=== PATIENT | female | born 1990 | race Two or more races ===

== ENCOUNTER 2024-07-09 04:22 | Emergency (ER) | payer OTHER ==
[2024-07-09] MEDS: Morphine 4 MG/ML Syringe IM ONE (04:52)
[2024-07-09] MEDS: Morphine 4 MG/ML Syringe IVPUSH ONE (05:03)
[2024-07-09] MEDS: Sodium Chloride 0.9% 1,000 ML IV ONE (05:03)
[2024-07-09] MEDS: Ondansetron 4 MG/2 ML SDV IVPUSH ONE (05:03)
[2024-07-09 05:17] LABS: BASOPHILS ABSOLUTE AUTO 0.02 K/uL (0.00-0.20); BASOPHILS PERCENT AUTO 0.2 % (0.0-1.0); EOSINOPHILS ABSOLUTE AUTO 0.03 K/uL (0.00-0.45); EOSINOPHILS PERCENT AUTO 0.2 % (0.0-6.0); HEMATOCRIT 37.5 % (37.0-47.0); HEMOGLOBIN 12.6 g/dL (12.0-16.0); IMMATURE GRAN ABSOLUTE AUTO 0.03 K/uL (0.00-0.05); IMMATURE GRAN PERCENT AUTO 0.2 % (0.0-0.4); LYMPHOCYTES ABSOLUTE AUTO 2.07 K/uL (1.00-4.80); LYMPHOCYTES PERCENT AUTO 15.9 % (24.0-44.0); MEAN CORPUSCULAR HEMOGLOBIN 28.5 pg (28.0-32.0); MEAN CORPUSCULAR HGB CONC 33.6 g/dL (32.0-36.0); MEAN CORPUSCULAR VOLUME 84.8 fL (83.0-99.0); MEAN PLATELET VOLUME 8.8 fL (9.4-12.3); MONOCYTES ABSOLUTE AUTO 0.69 K/uL (0.00-0.80); MONOCYTES PERCENT AUTO 5.3 % (0.0-8.0); NEUTROPHILS ABSOLUTE AUTO 10.19 K/uL (1.80-7.70); NEUTROPHILS PERCENT AUTO 78.2 % (41.0-71.0); PLATELET COUNT,PLT 296 K/uL (150-400); RED BLOOD CELL COUNT 4.42 M/uL (4.10-5.30); WHITE BLOOD CELL COUNT,WBC 13.03 K/uL (3.9-11.3)
[2024-07-09 05:19] LABS: APPEARANCE,URINE SLT CLOUDY; BILIRUBIN,URINE NEGATIVE (NEGATIVE); COLOR,URINE YELLOW; GLUCOSE,URINE NEGATIVE (NEGATIVE); KETONES,URINE NEGATIVE (NEGATIVE); LEUKOCYTE ESTERASE,URINE NEGATIVE (NEGATIVE); NITRITE,URINE NEGATIVE (NEGATIVE); OCCULT BLOOD,URINE MODERATE (NEGATIVE); PH,URINE 6.5 (5.0-8.0); PROTEIN,URINE NEGATIVE (NEGATIVE); UROBILINOGEN,URINE 0.2 EU/dL (<2.0)
[2024-07-09 05:24] LABS: AMORPHOUS SEDIMENT,URINE MANY (NEGATIVE); BACTERIA,URINE FEW (NEGATIVE); EPITHELIAL CELLS,URINE FEW (NONE-FEW); WBC,URINE 0-2 (0-5/HPF)
[2024-07-09 05:43] LABS: ALANINE AMINOTRANSFERASE,ALT 21 IU/L (14-63); ALBUMIN 3.9 g/dL (3.4-5.0); ALKALINE PHOSPHATASE 73 U/L (46-116); ASPARTATE AMNIOTRANSFERASE,AST 19 IU/L (15-37); BILIRUBIN TOTAL 0.3 mg/dL (0.2-1.0); BLOOD UREA NITROGEN,BUN 14 mg/dL (7.0-18.0); CALCIUM 9.4 mg/dL (8.5-10.1); CARBON DIOXIDE,CO2 31.1 mmol/L (21.0-32.0); CHLORIDE,CL 101 mmol/L (98-107); CREATININE 0.8 mg/dL (0.6-1.0); EST CRCL DRUG DOSING (CG) 71.17 mL/min; GLUCOSE RANDOM 145 mg/dL (74-106); POTASSIUM,K 3.8 mmol/L (3.5-5.1); PROTEIN TOTAL,TP 7.9 g/dL (6.4-8.2); SODIUM,NA 139 mmol/L (136-145)
[2024-07-09 05:51] LABS: ESTIMATED GFR 99 mL/min (>60); HCG QUANTITATIVE < 1.0 mIU/mL
[2024-07-09] MEDS: Ketorolac 30 MG/ML SDV IVPUSH ONE (05:56)
[2024-07-09] MEDS: Iopamidol 755 MG/ML 500 ML Multipack Bottle IVPUSH STA (08:15)
== END 2024-07-09 10:26 | disposition home or self-care (01) ==
LOC: MW.ED 04:22
DX: K80.20 Calculus of gallbladder without cholecystitis without obstruction (principal); Z75.3 Unavailability and inaccessibility of health-care facilities
CPT/HCPCS: 36415; 74177; 76705; 80053; 81001; 83690; 84702; 85025; 96361; 96374; 96375; 99284; J1885; J2270; J2405; J7030; Q9967; 99283

== ENCOUNTER 2024-08-17 06:18 | Day surgery (SDC) | payer BC, OTHER ==
[2024-08-17] MEDS ORDERED: fentaNYL 100 MCG/2 ML SDV ONE ×2 (07:29→08:43)
[2024-08-17] MEDS ORDERED: Midazolam 1 MG/ML 2 ML SDV ONE (07:29)
[2024-08-17] MEDS ORDERED: Propofol 200 MG/20 ML SDV ONE (07:29)
[2024-08-17] MEDS ORDERED: dexmedeTOMIDine HCl 200 MCG/2 ML SDV ONE (07:30)
[2024-08-17] MEDS: Lactated Ringers 1,000 ML IV SCH (07:31)
[2024-08-17] MEDS: Scopalamine 1mg/3day Transdermal Patch TOP ONE (07:32)
[2024-08-17] MEDS ORDERED: Ropivacaine 0.5% 5 MG/ML 30 ML SDV ONE (07:33)
[2024-08-17] MEDS ORDERED: Indocyanine Green 25 MG SDV ONE (07:48)
[2024-08-17] MEDS ORDERED: Albuterol 0.083% 2.5 MG/3 ML Neb Soln NEB PRN (07:58)
[2024-08-17] MEDS ORDERED: Naloxone 0.4 MG/ML SDV IVPUSH PRN (07:58)
[2024-08-17] MEDS ORDERED: Ondansetron 4 MG/2 ML SDV IVPUSH PRN (07:58)
[2024-08-17] MEDS ORDERED: fentaNYL 50 MCG/ML SDV IVPUSH PRN (07:58)
[2024-08-17] MEDS ORDERED: Dexamethasone 4 MG/ML 5 ML MDV ONE (08:32)
[2024-08-17] MEDS ORDERED: Ondansetron 4 MG/2 ML SDV ONE (09:06)
[2024-08-17] MEDS ORDERED: Ketorolac 30 MG/ML SDV ONE (09:06)
[2024-08-17] MEDS ORDERED: Acetaminophen/HYDROcodone 325-5 MG Tab PO PRN (09:33)
[2024-08-17] MEDS ORDERED: Lactated Ringers 1,000 ML IV SCH (09:45)
== END 2024-08-17 12:00 | disposition home or self-care (01) ==
LOC: MW.SDS 06:18
PROVIDERS: ATTEND Surgery
DX: K80.10 Calculus of gallbladder with chronic cholecystitis without obstruction (principal)
CPT/HCPCS: 00790; 64488; 81025; A9270-GY; J0665; J0690; J1100; J1885; J2003; J2250; J2405; J2704; J2795; J3010; J3490; J7120